=== PATIENT | female | born 2005 | race Two or more races ===

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

== ENCOUNTER → 2023-06-04 | Emergency (ER) | payer OTHER ==
[~2023-06-04] VITALS: Ht 154.9 cm; Wt 44.5 kg
[~2023-06-04] MED LIST: ONDANSETRON ODT4 MG PO; PEPCID40 MG PO
== END | disposition home or self-care (01) ==
LOC: ER 17:04 → EMR PED 17:16 → ER 17:16
DX: S00.03XA Contusion of scalp, initial encounter (principal); X58.XXXA Exposure to other specified factors, initial encounter; Y93.89 Activity, other specified; Y92.89 Other specified places as the place of occurrence of the external cause; Y99.8 Other external cause status

== ENCOUNTER 2025-05-04 20:03 | Emergency (ER) | payer OTHER ==
[~2025-05-04] VITALS: Ht 152.4 cm; Wt 44.0 kg
[2025-05-04] MEDS ORDERED: ACETAMINOPHEN 500 MG GEL..CAP PO ONE ×3 (20:42→22:07)
[2025-05-04] MEDS ORDERED: METHYLPREDNISOLONE SOD SUCC 125 MG VIAL IV ONE (22:30)
[2025-05-04] MEDS ORDERED: FAMOTIDINE/PF 20 MG in 0.9 % SODIUM CHLORIDE 8 ML IV PUSH ONE (22:30)
[2025-05-04] MEDS ORDERED: LEVALBUTEROL HCL 1.25 MG/3 ML SOLUTION IH SCH (22:30)
[2025-05-04] MEDS ORDERED: IPRATROPIUM BROMIDE 0.5 MG/2.5 ML AMPUL.NEB IH SCH (22:30)
[2025-05-04] MEDS ORDERED: HYDROCODONE/CHLORPHEN P-STIREX 5 ML ML PO ONE (22:30)
[2025-05-04] MEDS ORDERED: METHYLPREDNISOLONE SOD SUCC 125 MG VIAL ONE (22:32)
[2025-05-04] MEDS ORDERED: FAMOTIDINE/PF 20 MG/2 ML VIAL ONE (22:32)
[2025-05-04] MEDS ORDERED: IPRATROPIUM BROMIDE 0.5 MG/2.5 ML AMPUL.NEB IH ONE (22:53)
[2025-05-04] MEDS ORDERED: LEVALBUTEROL HCL 1.25 MG/3 ML SOLUTION IH ONE (22:53)
[2025-05-04 23:09] LABS: BASO % 0.1 % (0.1-1.2); EOS # 0.05 (0.04-0.54); EOS % 0.6 % (0.7-7.0); LYMPH # 1.18 (1.18-3.74); LYMPH % 14.5 % (19.3-53.1); MEAN PLATELET VOLUME 11.10 fl (9.4-12.4); MONO # 0.63 (0.24-0.82); MONO % 7.7 % (4.7-12.5); NEUT # 6.26 (1.56-6.13); NEUT % 77.0 % (34.0-71.1); RED CELL DISTRIBUTION WIDTH 12.1 % (11.6-14.4)
[2025-05-04 23:16] LABS: ERYTHROCYTE SEDIMENTATION RATE 10 mm/hr (0-20)
[2025-05-04 23:38] LABS: ALT/SGPT 19.0 U/L (12-78); AST/SGOT 20.0 U/L (15-37); BILIRUBIN TOTAL 0.64 mg/dL (0.3-1.2); BUN CREA RATIO 22.0 (7.0-25.0); CREATININE SERUM 0.67 mg/dL (0.55-1.02); GFR 110.06; GLOBULINA 3.9 G/DL (2.4-3.5); GLUCOSE FASTING 97.0 mg/dL (65-100); OSMOLALITY SERUM 276.0 MOSM/KG (275-295)
[2025-05-05 04:09] LABS: COVID-19 AG NEGATIVE (NEGATIVE)
[2025-05-05] MEDS ORDERED: SINGULAIR10 MG PO (04:32)
[2025-05-05] MEDS ORDERED: OSEL75CA PO (04:32)
== END 2025-05-05 04:48 | disposition home or self-care (01) ==
LOC: ER 20:04
PROVIDERS: General Practice
DX: B34.9 Viral infection, unspecified (principal); J10.1 Influenza due to other identified influenza virus with other respiratory manifestations; R10.9 Unspecified abdominal pain; R50.9 Fever, unspecified; R05.8 Other specified cough; Z20.822 Contact with and (suspected) exposure to COVID-19